=== PATIENT | male | born 1965 | race African-American/Black ===

== ENCOUNTER 2018-12-21 17:11 | Emergency (ER) | payer OTHER ==
[~2018-12-21] VITALS: Ht 167.6 cm; Wt 72.6 kg
[2018-12-21] MEDS ORDERED: Sodium Chloride 2,200 ML IVLG ONE (17:15)
--- NOTE | 2018-12-21 17:40 | NUR ---
ED Nurse Note: pt presents via [facility] for c/o n/v with abd pain starting approx 1600 today. pt vomiting large amt undigested food upon arrival to ed. pt with low blood glucose en route per ems. pt with accucheck of 51 noted with rn interventions. meds given as noted and md aware. pt tolerates iv start and lab draw well. 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 lungs cta bilaterally. abd soft nt.
[2018-12-21 18:05] LABS: BASOPHILS % (AUTO) 1.6 % (0.0-2.0); EOSINOPHILS % (AUTO) 2.8 % (0.0-3.0); HEMATOCRIT 51.1 % (42.0-52.0); HEMOGLOBIN 17.2 G/DL (14.2-18.0); LYMPHOCYTES % (AUTO) 16.2 % (20.0-45.0); MEAN CORPUSCULAR VOLUME 90 FL (80-99); MONOCYTES % (AUTO) 8.5 % (1.0-10.0); NEUTROPHILS % (AUTO) 70.9 % (45.0-75.0); PLATELET COUNT 276 K/UL (150-450); RED BLOOD COUNT 5.67 M/UL (4.70-6.10); RED CELL DISTRIBUTION WIDTH 11.3 % (11.6-14.8); WHITE BLOOD COUNT 17.6 K/UL (4.8-10.8)
[2018-12-21 18:31] VITALS: BP 185/77
[2018-12-21 18:31] LABS: ALANINE AMINOTRANSFERASE 41 U/L (12-78); ALBUMIN 4.4 G/DL (3.4-5.0); ALBUMIN/GLOBULIN RATIO 0.9 (1.0-2.7); ALKALINE PHOSPHATASE 153 U/L (46-116); ANION GAP 11 mmol/L (5-15); ASPARTATE AMINO TRANSFERASE 29 U/L (15-37); BILIRUBIN,TOTAL 0.4 MG/DL (0.2-1.0); BLOOD UREA NITROGEN 25 mg/dL (7-18); CARBON DIOXIDE 27 MMOL/L (21-32); CHLORIDE 105 MMOL/L (98-107); CKMB 4.7 NG/ML (0.0-3.6); CREATINE KINASE 446 U/L (26-308); POTASSIUM 3.5 MMOL/L (3.5-5.1); SODIUM 143 MMOL/L (136-145)
[2018-12-21] MEDS ORDERED: LOSARTAN POTASS25 MG ORAL (18:31)
[2018-12-21] MEDS ORDERED: cholesterol med (18:31)
[2018-12-21] MEDS ORDERED: NOVOLOG100 UNITS1 SUBQ (18:31)
[2018-12-21] MEDS ORDERED: FUROSEMIDE40 MG ORAL (18:31)
[2018-12-21] MEDS ORDERED: ALBUTEROL SULF8.5 GM INH (18:31)
[2018-12-21] MEDS ORDERED: CARVEDILOL3.125 MG ORAL (18:31)
[2018-12-21] MEDS ORDERED: LANTUS SOL100 UNIT/1 SUBQ (18:31)
--- NOTE | 2018-12-21 18:37 | Emergency Room Report ---
History of Present Illness General Chief Complaint: Abnormal Labs Source: Patient Present Illness HPI This patient has a history of insulin-dependent diabetes. He states that he was feeling well earlier today until just prior to arrival when he was walking around and suddenly became sweaty and weak. He is brought in by EMS. EMS report that fingerstick blood sugar by them was in the 30s. EMS was unable to obtain IV access and was unable to give IV glucose but did give oral glucose. Patient denies recent illness. Denies fever chills. He denies cough or congestion. He denies chest pain or shortness of breath. He did have an episode of vomiting on arrival to the emergency department. He states that he feels much better at this time. He has no other complaints. Allergies: Coded Allergies: ASPIRIN (Verified Allergy, Unknown, 12/21/18) Patient History Past Medical History: see triage record, DM, HTN, asthma Social History: Denies: smoking, alcohol use, drug use Reviewed Nursing Documentation: PMH: Agreed; PSxH: Agreed Nursing Documentation-PMH Past Medical History: No History, Except For Hx Cardiac Problems: Yes - high cholesterol Hx Hypertension: Yes Hx Asthma: Yes Hx Diabetes: Yes Review of Systems All Other Systems: negative except mentioned in HPI Physical Exam Vital Signs Date Time Temp Pulse Resp B/P (MAP) Pulse Ox O2 Delivery O2 Flow Rate FiO2 12/21/18 17:07 98.1 65 19 165/98 (120) 98 Room Air Sp02 EP Interpretation: reviewed, normal General Appearance: no apparent distress, alert, GCS 15, non-toxic Head: normocephalic, atraumatic Eyes: bilateral eye normal inspection, bilateral eye PERRL ENT: hearing grossly normal, normal pharynx, no angioedema, normal voice Neck: full range of motion, supple/symm/no masses Respiratory: chest non-tender, lungs clear, normal breath sounds, no respiratory distress, no retraction, no accessory muscle use, speaking full sentences Cardiovascular #1: regular rate, rhythm, no edema Gastrointestinal: normal bowel sounds, non tender, soft, non-distended, no guarding, no rebound Rectal: deferred Musculoskeletal: back normal, gait/station normal, normal range of motion, non- tender Neurologic: alert, oriented x3, responsive, motor strength/tone normal, sensory intact, speech normal Psychiatric: judgement/insight normal, memory normal, mood/affect normal, no suicidal/homicidal ideation Skin: no rash, normal color Medical Decision Making Diagnostic Impression: Primary Impression: Hypoglycemia ER Course The patient presented with hypoglycemia. He had not eaten and had taken his insulin. He was monitored in the emergency department after getting D50 IV. His blood sugar remained elevated in the range of 350. The patient was also given a high carbohydrate meal. The patient is able to manage his own blood sugar with insulin at home. I instructed him to hold off on insulin tonight and then restart his normal regimen tomorrow morning. The patient preferred to go home. There were no drops in his blood sugar so I do not feel that this patient needs admission at this time. Patient is given close return precautions and follow-up instructions. Laboratory Tests Test 12/21/18 17:40 12/21/18 18:55 White Blood Count 17.6 K/UL (4.8-10.8) H Red Blood Count 5.67 M/UL (4.70-6.10) Hemoglobin 17.2 G/DL (14.2-18.0) Hematocrit 51.1 % (42.0-52.0) Mean Corpuscular Volume 90 FL (80-99) Mean Corpuscular Hemoglobin 30.3 PG (27.0-31.0) Mean Corpuscular Hemoglobin Concent 33.6 G/DL (32.0-36.0) Red Cell Distribution Width 11.3 % (11.6-14.8) L Platelet Count 276 K/UL (150-450) Mean Platelet Volume 7.0 FL (6.5-10.1) Neutrophils (%) (Auto) 70.9 % (45.0-75.0) Lymphocytes (%) (Auto) 16.2 % (20.0-45.0) L Monocytes (%) (Auto) 8.5 % (1.0-10.0) Eosinophils (%) (Auto) 2.8 % (0.0-3.0) Basophils (%) (Auto) 1.6 % (0.0-2.0) Sodium Level 143 MMOL/L (136-145) Potassium Level 3.5 MMOL/L (3.5-5.1) Chloride Level 105 MMOL/L (98-107) Carbon Dioxide Level 27 MMOL/L (21-32) Anion Gap 11 mmol/L (5-15) Blood Urea Nitrogen 25 mg/dL (7-18) H Creatinine 1.3 MG/DL (0.55-1.30) Estimate Glomerular Filtration Rate 57.7 mL/min (>60) Glucose Level 44 MG/DL (74-106) L Lactic Acid Level 2.50 mmol/L (0.4-2.0) H Pending Calcium Level 10.8 MG/DL (8.5-10.1) H Magnesium Level 1.9 MG/DL (1.8-2.4) Total Bilirubin 0.4 MG/DL (0.2-1.0) Aspartate Amino Transferase (AST) 29 U/L (15-37) Alanine Aminotransferase (ALT) 41 U/L (12-78) Alkaline Phosphatase 153 U/L (46-116) H Total Creatine Kinase 446 U/L (26-308) H Creatine Kinase MB 4.7 NG/ML (0.0-3.6) H Creatine Kinase MB Relative Index 1.0 Troponin I 0.000 ng/mL (0.000-0.056) Total Protein 9.1 G/DL (6.4-8.2) H Albumin 4.4 G/DL (3.4-5.0) Globulin 4.7 g/dL Albumin/Globulin Ratio 0.9 (1.0-2.7) L EKG Diagnostic Results Rate: normal Rhythm: NSR ST Segments: no acute changes Rhythm Strip Diag. Results EP Interpretation: yes Rate: 70's Rhythm: NSR, no PVC's, no ectopy Chest X-Ray Diagnostic Results Chest X-Ray Diagnostic Results : Chest X-Ray Ordered: Yes # of Views/Limited/Complete: 1 View Indication: Other EP Interpretation: Yes Interpretation: no consolidation, no effusion, no pneumothorax, no acute cardiopulmonary disease Impression: No acute disease Electronically Signed by: Deanne Benson DO Last Vital Signs Date Time Temp Pulse Resp B/P (MAP) Pulse Ox O2 Delivery O2 Flow Rate FiO2 12/21/18 18:31 78 20 185/77 98 Room Air 12/21/18 17:07 98.1 Status: improved Disposition: HOME, SELF-CARE Condition: Improved Deanne Benson DO Dec 21, 2018 18:37
--- NOTE | 2018-12-21 18:37 | NUR ---
ED Nurse Note: pt relates feeling much better now and pain decreased. repeat accucheck relayed to md. no new orders. pt without n/v
[2018-12-21 18:45] LABS: CALCIUM 10.8 MG/DL (8.5-10.1); CREATININE 1.3 MG/DL (0.55-1.30)
--- NOTE | 2018-12-21 18:49 | NUR ---
ED Nurse Note: lactic noted, reflex drawn as per protocol
--- NOTE | 2018-12-21 19:00 | NUR ---
ED Nurse Note: charge operator aware pt needs reflex lactic order by lab
[2018-12-21 19:05] VITALS: BP 171/88
--- NOTE | 2018-12-21 19:05 | NUR ---
ED Nurse Note: Received report from Zakia ZELAYA. Pt alert and oriented, verbally responsive. No SOB. Breathing even and unlabored. VSS.
[2018-12-21 20:33] LABS: APPEARANCE,URINE CLEAR; BILIRUBIN, URINE NEGATIVE (NEGATIVE); COLOR,URINE PALE YELLOW; GLUCOSE, URINE (UA) 4+ (NEGATIVE); KETONES,URINE NEGATIVE (NEGATIVE); LEUKOCYTE ESTERASE ,URINE NEGATIVE (NEGATIVE); NITRITE,URINE NEGATIVE (NEGATIVE); PH,URINE 5 (4.5-8.0); PROTEIN,URINE 2+ (NEGATIVE); UROBILINOGEN,URINE NORMAL MG/DL (0.0-1.0)
--- NOTE | 2018-12-21 21:17 | NUR ---
ED Nurse Note: Bedside accucheck is 365, MD aware. MD okayed to give food.
[2018-12-21 21:41] VITALS: BP 145/77
[2018-12-21 21:44] VITALS: BP 145/77
--- NOTE | 2018-12-21 21:44 | NUR ---
ED Nurse Note: Pt cleared by ERMD for discharge. DC instructions was given and explained to pt and verbalized understanding of teachings. All medical devices such as ID band and Iv line removed. Pt is AAO x4, ambulatory and left with all personal belongings. Taxi voucher provided.
--- NOTE | 2018-12-22 10:21 | Diagnostic Imaging Report ---
Indication: Shortness of breath Technique: XRAY Chest 1v Comparison: None Findings: Limited exam with low lung volumes. Heart size and mediastinal contours are within normal limits for AP technique and low lung volumes. There is no focal airspace consolidation, pneumothorax or pleural effusion. Osseous structures demonstrate no acute abnormality. Impression: Limited exam. No definite radiographic evidence of acute cardiopulmonary disease.
--- NOTE | 2018-12-25 12:11 | Cardiology Report ---
APPROVED REPORT EKG Measurement Heart [id number] Normal sinus rhythm Nonspecific T wave abnormality Prolonged QT Abnormal ECG
== END 2018-12-21 21:44 | disposition home or self-care (01) ==
LOC: EDBD 17:11 → EMR 20:11
DX: E11.649 Type 2 diabetes mellitus with hypoglycemia without coma (principal); Z79.4 Long term (current) use of insulin; Z88.6 Allergy status to analgesic agent; I10 Essential (primary) hypertension; J45.909 Unspecified asthma, uncomplicated; E78.00 Pure hypercholesterolemia, unspecified
CPT/HCPCS: 36415; 71045; 80053; 81003; 82550; 82553; 82962; 83605; 83735; 84484; 85025; 93005; 96361; 96374; 96375; 99284; J2405; J7030